=== PATIENT | female | born 1965 | race Native Hawaiian/Other Pacific Islander ===

== ENCOUNTER 2023-05-22 15:20 | Outpatient (CLI) | payer OTHER | END 2023-05-22 20:36 | disposition home or self-care (01) | LOC: RAD 15:20 | PROVIDERS: ATTEND Nurse Practitioner Family | DX: E11.43 Type 2 diabetes mellitus with diabetic autonomic (poly)neuropathy (principal); E55.9 Vitamin D deficiency, unspecified; M85.89 Other specified disorders of bone density and structure, multiple sites; Z79.899 Other long term (current) drug therapy ==